=== PATIENT | male | born 1950 | race Caucasian/White ===

== ENCOUNTER → 2017-01-29 | Outpatient (CLI) | payer BC ==
[~2017-01-29] MED LIST: ASCO500T16 PO; GADAVIST IV PRN; OXYB5TAB74 PO
--- NOTE | 2017-01-29 20:31 | DIAGNOSTIC IMAGING REPORT ---
MRI OF THE BRAIN WITH AND WITHOUT CONTRAST, INCLUDING PITUITARY PROTOCOL CLINICAL HISTORY: Pituitary adenoma COMPARISON STUDY: MRI the brain 01/26/2016. TECHNIQUE: Multiplanar multisequence MRI of the brain was performed both before and after intravenous ministration of contrast. Dynamic postcontrast imaging through the posterior fossa was also obtained. FINDINGS: There are no areas of restricted diffusion. No acute intracranial hemorrhage is present. Ventricular system is normal. The basilar cisterns are patent. There are no extra-axial collections. There is loss of the normal flow-void within the right internal carotid artery. This is new from the prior study. However, there is no right-sided infarct. Therefore, this favors chronic occlusion. Small retention cysts within the bilateral max a sinus is remain unchanged. A few white matter T2 hyperintense foci suggest minimal small vessel ischemic disease. Postsurgical findings within the sinuses and the sella are again noted. There is an enhancing mass within the right aspect of the sella with suprasellar extension which encases the right cavernous carotid. This mass measures 2.6 x 1.7 x 1.4 cm. This mass abuts the right optic nerve. There may be minimal extension into the sphenoid sinus. Postoperative changes within the sphenoid sinus are noted. The appearance is similar to the prior examination. Leftward deviation of the infundibulum is unchanged. No additional intracranial masses are present. IMPRESSION: 1. No significant change in appearance of the enhancing right sellar mass with suprasellar extension since the prior MRI. This mass encases the right cavernous carotid and abuts the right optic nerve. 2. There has been interval development of loss of the normal flow void within the right internal carotid artery. No evidence for right-sided acute infarct. Therefore, this favors chronic occlusion. Follow-up brain MRA or CTA is recommended for confirmation. 3. Stable postoperative findings within the sinuses and sellar region. Electronically signed by: Alverto Jenkins M.D. 01/29/2017 8:30 PM Dictated Date/Time: 01/29/2017 8:21 PM
== END | disposition home or self-care (01) ==
LOC: C.MRI 18:12
PROVIDERS: ATTEND Physician Assistant Medical
DX: D35.2 Benign neoplasm of pituitary gland (principal); I65.29 Occlusion and stenosis of unspecified carotid artery

== ENCOUNTER → 2017-02-01 | Outpatient (CLI) | payer BC ==
[~2017-02-01] MED LIST changes: -GADAVIST IV PRN
[2017-02-01 13:30] VITALS: BP 144/79; PULSE 60; TEMP 36.9; O2SAT 99
--- NOTE | 2017-02-01 15:24 | Radiation Oncology Follow-Up ---
Radiation Oncology Follow-Up Date of Visit Feb 01, 2017. Reason For Visit Annual follow-up and to review MRI results Radiation Completion Date finished 04-07-2015 Diagnosis (1) Pituitary adenoma Status: Chronic Onset Date: 03/09/2009 Location: sella turcica Histology Subtype: adenoma Stage: Not Applicable Permanent Comment: Headaches and tingling of the hand MRI revealing pituitary mass Status post debulking 03/09/2009 pituitary adenoma Followed with serial MRIs with slow increase in size Status post completion of radiation therapy 04/07/2015 received 5400 cGy Last Edited By: Dora Williamson on Apr 20, 2015 09:11 History of Present Illness Mr. Cifuentes is a 65-year-old male who presented in 2008 with severe headaches. He was sent for an MRI of the brain performed on February 06 which revealed a lesion in the region of the sella. He went on to have a repeat brain MRI on 02/15/2009. This revealed a mixed density enhancing mass extending from the pituitary gland into the suprasellar region. No normal pituitary tissue was identified. The lesion was noted in the sella displacing the infundibulum and the optic chiasm. There was inferior extension into the sphenoid sinus. The mass measured approximately 2.0 x 1.9 cm. 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 At that time there was no mention of visual field cuts. He was seen by the patient was evaluated by her original neurosurgeon Dr. Drummond February 2009. He ordered a CT scan which was performed on 03/08/2009. This study revealed a large homogeneously enhancing sellar mass with extension laterally into the cavernous sinus, anteriorly and inferiorly to the optic canal and inferior to the orbital fissure on the right. There was possible extension into the posterior lateral left sphenoid sinus along the midline. Superiorly the mass involved the infundibulum and extended to the level of the hypothalamus at the infundibular recess and along the left hypothalamus at the third ventricle. There was circumferential encasement of the cavernous sinus right internal carotid artery. The mass measured 2.2 x 2.1 cm the mass abutted the posterior communicating artery on the left in the suprasellar cistern. The neurosurgeons report identified bony destruction of the right anterior clinoid. This was not mentioned in the CT report. He felt this lesion was more compatible with a pituitary adenoma although a meningioma was a possibility. He ordered hormone levels and visual field checks. His endocrine laboratory studies were normal except for a low testosterone which is asymptomatic and a relatively high prolactin which is felt to be secondary to the stalk affect. There were no visual field cuts appreciated with a possible slight decrease peripheral vision on the left side of the right eye to confrontation. On 03/09/2009 the patient underwent an expanded endoscopic endonasal approach and near total resection of an invasive pituitary macroadenoma. This was performed with a frameless stereotactic navigation. 3 fragments of soft tissue were excised measuring 0.4 x 0.3 x 0.2 cm, 0.5 x 0.3 x 0.2 cm and 0.4 x 0.3 x 0.2 cm. All were consistent with a pituitary adenoma. A postoperative MRI of the brain was performed on 03/10/2009. This showed the expected post procedural change following the transsphenoidal hypophysis ectomy. There was residual tumor in the right lateral sellar region and in the right cavernous sinus. The patient continued to be followed with serial MRIs at [facility]. On 10/23/2009 and MRI of the brain was performed. No significant changes were appreciated. On 10/24/2010 and MRI showed no change compared to the prior exam of October. There remained nonspecific thickening and enhancement of the right cavernous sinus. He continued to be followed at [facility] by neurosurgery. On 04/03/2011 patient did note decrease in smell. He noted occasional headaches usually frontal a level of 4-5 out of 10. He denied any visual changes. On 03/13/2012 repeat MRI was performed. This showed an abnormal mass lesion involving the right cavernous sinus extending superolaterally measuring approximately 1.8 x 1.5 x 0.9 cm. The lesion surrounds the cavernous segment of the internal carotid artery however blood flow was normal.. The carotid artery is slightly small but demonstrates normal flow there was mass effect upon the right optic nerve which abuts the lesion. Patient was seen in follow- up on 04/08/2012. Previous MRIs were reviewed. There was felt to be a 1-2 mm difference in continued follow-up was recommended. On 07/12/2013 patient underwent a repeat MRI of the brain. This showed no significant change in the size of the residual pituitary macroadenoma that is invading the anterior aspect of cavernous sinus and extending to the orbital apex when compared to the previous postoperative studies of 2009 and 2010. The patient was therefore seen on 08/01/2013 by neurosurgery and radiation oncology. This was to discuss treatment options. Surgical intervention was not recommended due to the proximity of the residual disease to the optic nerve. Single dose stereotactic radiotherapy was also not recommended due to the location of the lesion. Fractionated radiation was discussed versus continued observation. Ultimately the decision was made to continue with follow-up and observation. On 08/22/2014 the patient underwent a repeat MRI of the brain. This showed a mass within the right lateral sella and right cavernous sinus that encases the right cavernous internal carotid artery. This measured 2.0 x 1.1 cm compared to 1.7 x 1.1 cm on the previous study. In the more anterior aspect of the mass as it approached the right superior orbital fissure it measured transverse maximal of 14.7 mm compared to 12.8 on the prior study. The mass was noted within the right lateral sella extending into the right cavernous sinus, surrounding the cavernous right internal carotid artery. The tumor also extended anteriorly along the right sphenoid into the right superior orbital fissure. The tumor is noted to impinge the undersurface and partly and case the lateral aspect of the pre-chiasmatic right optic nerve. Overall this is compatible with a notable interval increase. The patient was evaluated by her original neurosurgeon who would since moved to [place]. He did not feel that surgery was an option. He therefore arrange for the patient to be seen at [facility] where she was evaluated by Dr. Urban. He recommended a course of fractionated radiation with a total dose between 45 and 54 Gy. She discussed in detail the potential risks and side effects both acute and chronic of this treatment. He obtained an MRI for treatment planning and a CT simulation. However the patient's granddaughter was recently diagnosed with leukemia and the patient wished to be treated closer to home. Dr. Urban was therefore kind enough to ask us to see this patient for evaluation and discussion of the role of fractionated radiation He completed radiation therapy 04/07/2015 and received 5400 cGy. Interim History His been doing well over the past year. He denies any problems with frequent and recurrent headaches. He does have occasional headaches. He had 2 headaches over this past week. He relates them to sinus. He is not having any sinus drainage. Denies nasal drainage or postnasal drip. He has had no change in his vision. 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 He just was recently seen then had multiple vision examinations performed as well as his peripheral vision tested. His glass prescription change only very slightly. He's had no problems with decreased strength of the upper or lower extremities. Allergies Coded Allergies: No Known Allergies (Unverified , 02/12/15) Home Medications Scheduled Ascorbic Acid (Ascorbic Acid), 500 MG PO DAILY Oxybutynin Chloride (Ditropan), 10 TAB PO DAILY Review of Systems Gastrointestinal: Symptoms: WNL Oral: Symptoms: No Problems Respiratory: Symptoms: WNL Urinary: Symptoms: Nocturia Comments: occ nocturia Skin: Symptoms: No Problems Physical Exam Vital Signs Date Time Temp Pulse Resp B/P (MAP) Pulse Ox O2 Delivery O2 Flow Rate FiO2 02/01/17 13:30 36.9 60 16 144/79 99 Pain: Side: Bilateral Patient Pain Scale: 0 - 10 Initial Pain Intensity: 0.0 Fatigue: None General Appearance: no apparent distress Eyes: normal inspection, EOMI ENT: normal ENT inspection, hearing grossly normal, TMs normal, pharynx normal Neck: no adenopathy, thyroid normal, + pertinent finding (no carotid bruits) Respiratory/Chest: lungs clear, no respiratory distress, no accessory muscle use Cardiovascular: regular rate, rhythm, no gallop, no murmur Extremities: no pedal edema 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, no motor/sensory deficits, alert, normal mood/affect Skin: warm/dry Additional Studies Patient: MADELAINE CIFUENTES Address1: [facility] Rec: [id number] Address2: Acct ID: [id number] [facility] Zip: [place] [address] Date: 1950 Sex: M Room/Bed: Ref Phy: Luana Olson PA-C SC: C.MRI Att Phy: Dora Williamson PA-C Report #: [id number] Amy Phy: Luana Olson PA-C Test: BRCPIT Admit Phy: Postal Delivery Officer: MONET Interpreting Phy: Alverto Jenkins MD Diagnosis: BENIGN NEOPLASM PITUITARY GLAND Ordering Phy: Dora Williamson PA-C Service Date: 01/29/17 Admit Date: 01/29/17 MNE: [id number] CONF: DICTATED BY: Alverto Jenkins M.D.]] CC: Dora Williamson PA-C Stoner, Melanie R. PA-C Endcc: [~ rep ct add3]] MRI OF THE BRAIN WITH AND WITHOUT CONTRAST, INCLUDING PITUITARY PROTOCOL CLINICAL HISTORY: Pituitary adenoma COMPARISON STUDY: MRI the brain 01/26/2016. TECHNIQUE: Multiplanar multisequence MRI of the brain was performed both before and after intravenous ministration of contrast. Dynamic postcontrast imaging through the posterior fossa was also obtained. FINDINGS: There are no areas of restricted diffusion. No acute intracranial hemorrhage is present. Ventricular system is normal. The basilar cisterns are patent. There are no extra-axial collections. There is loss of the normal flow-void within the right internal carotid artery. This is new from the prior study. However, there is no right-sided infarct. Therefore, this favors chronic occlusion. Small retention cysts within the bilateral max a sinus is remain unchanged. A few white matter T2 hyperintense foci suggest minimal small vessel ischemic disease. Postsurgical findings within the sinuses and the sella are again noted. There is an enhancing mass within the right aspect of the sella with suprasellar extension which encases the right cavernous carotid. This mass measures 2.6 x 1.7 x 1.4 cm. This mass abuts the right optic nerve. There may be minimal extension into the sphenoid sinus. Postoperative changes within the sphenoid sinus are noted. The appearance is similar to the prior examination. Leftward deviation of the infundibulum is unchanged. No additional intracranial masses are present. IMPRESSION: 1. No significant change in appearance of the enhancing right sellar mass with suprasellar extension since the prior MRI. This mass encases the right cavernous carotid and abuts the right optic nerve. 2. There has been interval development of loss of the normal flow void within the right internal carotid artery. No evidence for right-sided acute infarct. Therefore, this favors chronic occlusion. Follow-up brain MRA or CTA is recommended for confirmation. 3. Stable postoperative findings within the sinuses and sellar region. Electronically signed by: Alverto Jenkins M.D. 01/29/2017 8:30 PM Dictated Date/Time: 01/29/2017 8:21 PM Assessment & Plan Plan: Patient's MRI images were reviewed by Dr. Gomez in radiology. Due to the new finding of loss of normal flow within the right internal carotid artery, the patient has been scheduled for an MRA. He'll be notified as to results. If there is a need for referral to neurosurgery this will be scheduled. He previously was seen by a neurosurgeon at [facility]. That physician has since left. We will decide on whether he will follow-up if needed. We asked him to return to our office in 1 year. We'll plan an MRI prior to that visit. Orders will be written and this will be scheduled closer to the time of his annual visit. Total Time In Follow-Up I spent 20 minutes speaking to the patient in performing examination. I spent 15 minutes reviewing information in completing this note. Copy To Luana Olson PA-C
== END | disposition home or self-care (01) ==
LOC: C.ONC 12:55
PROVIDERS: ATTEND Physician Assistant Medical
DX: Z08 Encounter for follow-up examination after completed treatment for malignant neoplasm (principal); Z92.3 Personal history of irradiation; Z85.89 Personal history of malignant neoplasm of other organs and systems

== ENCOUNTER → 2017-02-08 | Outpatient (CLI) | payer BC ==
[~2017-02-08] MED LIST changes: +GADAVIST IV PRN
--- NOTE | 2017-02-08 10:28 | DIAGNOSTIC IMAGING REPORT ---
MR ANGIOGRAM OF THE BRAIN CLINICAL HISTORY: Abnormal MRI. Loss of the right carotid artery flow void. COMPARISON STUDY: MRI of the brain dated 01/29/2017. TECHNIQUE: 3-D [id number] MR angiography of the intracranial circulation is performed. 3-D tumble views are created and assessed. IV contrast was not administered for this examination. FINDINGS: There are bilateral posterior communicating arteries. The left internal carotid artery is widely patent, as are the left anterior and middle cerebral arteries. The right internal carotid artery is occluded to the bifurcation. There is opacification of the right anterior and middle cerebral arteries, which are likely supplied by collateral flow through the anterior and posterior communicating arteries. The flow void in the right middle cerebral artery is diminished as compared to the left. The vertebrobasilar system and posterior cerebral arteries are widely patent. The right vertebral artery is dominant. There is no aneurysm aneurysm seen. IMPRESSION: 1. 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 2. The right anterior and middle cerebral arteries are patent and supplied via collateral flow. 3. The remaining intracranial vessels are patent. Electronically signed by: Jori Putnam M.D. 02/08/2017 10:26 AM Dictated Date/Time: 02/08/2017 10:08 AM
--- NOTE | 2017-02-08 10:49 | DIAGNOSTIC IMAGING REPORT ---
MRA OF THE NECK WITH AND WITHOUT CONTRAST CLINICAL HISTORY: Follow-up abnormal MRI. COMPARISON STUDY: MRI of the brain January 29, 2017. TECHNIQUE: Unenhanced and contrast-enhanced MRA of the neck was performed. Injection of 7 mL of Gadavist IV was uneventful. NASCET criteria were utilized to estimate the degree of carotid stenosis. FINDINGS: There is occlusion of the right internal carotid artery at the level of the vessel origin. There is distal reconstitution at the level of the right cavernous carotid. The left internal carotid artery is patent. There is suspected moderate to severe stenosis of the proximal bilateral vertebral arteries. However, the vessel origins are suboptimally assessed by MRI. No additional sites of stenosis are identified on this examination. The right common carotid artery is patent. IMPRESSION: 1. Occlusion of the right internal carotid artery beginning at the vessel origin with distal reconstitution at the level of the right cavernous carotid. This occlusion is chronic. 2. Apparent moderate to severe stenoses of the proximal bilateral vertebral arteries although the vessel origins are suboptimally assessed by MRA. Electronically signed by: Pineda Evans M.D. 02/08/2017 10:48 AM Dictated Date/Time: 02/08/2017 10:35 AM
== END | disposition home or self-care (01) ==
LOC: C.MRI 07:31
PROVIDERS: ATTEND Physician Assistant Medical
DX: R93.0 Abnormal findings on diagnostic imaging of skull and head, not elsewhere classified (principal); D35.2 Benign neoplasm of pituitary gland; I65.21 Occlusion and stenosis of right carotid artery; I65.09 Occlusion and stenosis of unspecified vertebral artery

== ENCOUNTER → 2017-06-07 | Outpatient (CLI) | payer BC ==
[~2017-06-07] MED LIST changes: -ASCO500T16 PO; +GADAVIST IV; -GADAVIST IV PRN; -OXYB5TAB74 PO
== END | disposition home or self-care (01) ==
LOC: C.MRI 11:07
DX: C20 Malignant neoplasm of rectum (principal)